=== PATIENT | female | born 1965 | race African-American/Black ===

== ENCOUNTER → 2021-04-01 | Emergency (ER) | payer MEDICAID ==
[~2021-04-01] VITALS: Ht 167.6 cm; Wt 93.0 kg
[~2021-04-01] MED LIST: HYDROCODONE/ACETAMINOPHEN 5/325MG TABLET PO STA; NITR-87 MT
[2021-04-01 15:00] VITALS: BP 129/88
[2021-04-01 15:40] LABS: CHLORIDE 114 mEq/L (98-107)
[2021-04-01 15:44] LABS: INR 1.1; PROTHROMBIN TIME 11.6 sec (9.6-11.0)
[2021-04-01 15:53] LABS: BASOPHILS % 0.6 % (0.0-2.0); EOSINOPHILS % 3.1 % (0.0-5.0); HEMATOCRIT. 39.6 % (36.0-48.0); HEMOGLOBIN. 12.1 g/dL (12.0-16.0); LYMPHOCYTES % 25.6 % (20.0-50.0); MEAN CORPUSCULAR HEMOGLOBIN 28.5 pg (28.0-32.0); MEAN CORPUSCULAR VOLUME 93.2 fL (81.0-99.0); MONOCYTES % 5.6 % (2.0-8.0); NEUTROPHILS % 65.1 % (40.0-76.0); PLATELET 368 x1000/uL (130-400); RED BLOOD CELL COUNT 4.25 mill/uL (4.2-5.4); RED CELL DISTRIBUTION WIDTH 15.8 % (11.6-14.6)
[2021-04-01 16:58] LABS: CLARITY URINE CLOUDY (CLEAR); COLOR URINE YELLOW (YELLOW); KETONES URINE TRACE (NEGATIVE); LEUKOCYTE ESTERASE URINE NEGATIVE (NEGATIVE); NITRITE URINE NEGATIVE (NEGATIVE); OCCULT BLOOD URINE TRACE (NEGATIVE); PH URINE 5.5 (4.5-8.0); PROTEIN URINE TRACE (NEGATIVE); SPECIFIC GRAVITY URINE 1.028 (1.005-1.030)
== END | disposition home or self-care (01) ==
LOC: ER 13:38
DX: M54.30 Sciatica, unspecified side (principal); R30.0 Dysuria; I10 Essential (primary) hypertension; E11.9 Type 2 diabetes mellitus without complications; Z88.5 Allergy status to narcotic agent
CPT/HCPCS: 36415; 71045; 80053; 81003; 84484; 85025; 85610; 93005; 93971; 99285; Z7610

== ENCOUNTER 2021-09-11 21:23 | Emergency (ER) | payer MEDICAID ==
[~2021-09-11] VITALS: Ht 170.2 cm; Wt 94.0 kg
[~2021-09-11 21:23] MED LIST changes: -HYDROCODONE/ACETAMINOPHEN 5/325MG TABLET PO STA
[2021-09-11 21:29] VITALS: BP 129/77
== END 2021-09-12 00:23 | disposition left against medical advice (07) ==
LOC: ER 21:23
DX: R07.89 Other chest pain (principal); Z53.21 Procedure and treatment not carried out due to patient leaving prior to being seen by health care provider
CPT/HCPCS: 93005